=== PATIENT | female | born 1955 | race Caucasian/White ===

== ENCOUNTER → 2017-09-11 16:21 | Outpatient (CLI) | payer OTHER, SELFPAY ==
[2017-09-11 17:52] LABS: Anion Gap 4 (5-15); BUN 24 mg/dL (7-18); BUN/Creat Ratio 49.9 RATIO (10-20); Calcium,Total 9.3 mg/dL (8.5-10.1); Chloride 105 mmol/L (98-107); Creatinine, Serum 0.48 mg/dL (0.55-1.02); EST Glomerular Filtration Rate 139 mL/min (>60); Est Glom Filt Rate - Afr Amer 168 mL/min (>60); Glucose 94 mg/dL (74-106); Potassium 4.2 mmol/L (3.5-5.1); Sodium Level 143 mmol/L (136-145)
== END ==
PROVIDERS: Visit Provider Orthopaedic Surgery
DX: M18.12 Unilateral primary osteoarthritis of first carpometacarpal joint, left hand (principal); M79.642 Pain in left hand; I10 Essential (primary) hypertension
CPT/HCPCS: 36415; 80048

== ENCOUNTER 2017-12-01 11:00 | Outpatient (RCR) | payer OTHER, SELFPAY ==
--- NOTE | 2017-11-09 14:06 | HP.OTEVAL_ITS ---
Patient's Visit Information ALEXANDRA PERALTA is a 61 year old F, referred to Occupational Therapy by Jaydon Zaidi, with a diagnosis of Unilateral primary osteoarthritis of 1st carpometacarpal joint, left hand. Date of Evaluation: 11/09/17 Occupational Therapist: Alana Gonzalez, OTR/Declan, CHT - Subjective Subjective: This 61 year old female was seen for inital OT eval following a left CMC arthroplasty. PT arrives with comfort cool thumb brace. pt states she has used conservative mtg of her left thumb pain for over 2 years. pts sx of eft CMC arthroplasty on September 26 2017. Pt is pleased with her sx results but wants to get back her ROM and strength to return to her PLOF. 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# left 10# Lateral Pinch: right 4# left NT Tripod Pinch: right 4# left NT - DASH-Disabilities of Arm, Shoulder& Hand DASH Sum: 86 - Goals Goal:100% adherence to protocol: Yes Comment: CMC arthroplasty protocol Goal:Daily scar massage when approriate: Yes Goal:ROM equal to unaffected hand: Yes Goal:No pain with affected hand use: Yes Comment: for BADls and IADLs by D/C Goal:Full use of affected hand in daily activities including: Yes Goal:Decrease scar hypersensitivity: Yes - Rehabilitation General Assessment: PT S/P CMC arthroplasty of left thumb with interpositional flexor jackie radialis graft on 09/26/17. PT demo with a decreased in left wrist and thumb ROM and strength. This limits pts ind. with BADls and IADLs. Pt would benefit from skilled OT services 2-3x week for 4 weeks to follow CMC arthroplasty protocol and return pt to [facility] with her ADLs and IADls. Today pt was ed. on scar mtg, AROM of thumb and wrist to initiate her rehabilitaion. Pt demo understanding of instructions given. Rehabilitation Potential: Excellent - Anticipated Interventions Anticipated Interventions: A/AAROM/PROM, Strengthening, Scar Care, Triggerpoint Release, Desensitization, Modalities, Orthoses, Joint Protection/Energy Conservation, Ergonomic Education - Visit Plan Frequency: 2-3x /Week Duration: 4 Weeks TEXT: Thank you for the opportunity to evaluate your patient. For Medicare and Medicare HMO plans, please review the plan of care and approve it. It will need to be FAXED BACK to us at [phone] for Medicare purposes. Please let me know if there are questions or concerns regarding this plan of care. Physician Signature: Date:
--- NOTE | 2017-11-28 12:17 | OTREVAL_ITS ---
Jaydon Zaidi, It has been my pleasure to treat ALEXANDRA PERALTA over the last 6 visits for Unilateral primary osteoarthritis of 1st carpometacarpal joint, left hand. Please see the progress note below for an update on the occupational therapy plan of care! Subjective: pt states she has developed a more natural use of her left thumb with FM tasks. pt states yesterday her hand was 3/10 all day long- did put brace on and it felt better- but has concerns with performing her job tasks for long periods of time- Therapist advised pt to initiate job tasks with CMC brace and wean out of it during her work day. Objective/Function: pt demo good functional ROM of thumb and left wrist-. IP flex 55. MP flex 40. pt demo the ability to peform opposition to base of LF. pt demo with a nodule at CMC region- tender to touch- scar looks fine- some adhesions but does not appear to limit pt ROM. Plan Frequency: 1x/Week Duration: 2 Weeks Plan: pt is perfroming a HEP with t-putty and use of her hand for normal ADLs and IADLS tasks. pt states she is 80% ability at this time. Will let Dr rubial the nodule on left CMC region. Anticipated Interventions Anticipated Interventions: A/AAROM/PROM, Strengthening, Scar Care, Triggerpoint Release, Desensitization, Modalities, Orthoses, Joint Protection/Energy Conservation, Ergonomic Education Please do not hesitate to contact me at [phone] by phone or Fax: if you have questions or concerns regarding this new plan of care! Sincerely, Alana Gonzalez, OTR/L, CHT
--- NOTE | 2018-01-16 10:31 | HP.OT.NRP ---
HP - Discharge Summary - Patient Information ALEXANDRA PERALTA was seen in my office for initial evaluation on 11/09/17. The following Plan of Care was established for this patient: Initial Frequency: 1x/Week Initial Duration: 2 Weeks Plan: pt is perfroming a HEP with t-putty and use of her hand for normal ADLs and IADLS tasks. pt states she is 80% ability at this time. Will let Dr eval the nodule on left CMC region. - Anticipated Interventions Anticipated Interventions: A/AAROM/PROM, Strengthening, Scar Care, Triggerpoint Release, Desensitization, Modalities, Orthoses, Joint Protection/Energy Conservation, Ergonomic Education This patient was last seen in our office 12/01/17. Pertinent comments regarding their Occupational therapy will appear below: pt was seen for 7 OT visits following a CMC arthroplasty. Pt was progressing well and then started to have a painful nodule over CMC region- pt was to return to dr and have it looked at- pt was progressing and demo good ROM but pain- pt did not return to therapy following her apt with . at this time pt d/c due to non attendance. At this point I will be discontinuing this patient from occupational therapy. I would be happy to see this patient again in the future if found appropriate by the physician. Thank you! Alana Gonzalez, OTR/L, CHT
== END 2017-12-01 19:00 | disposition home or self-care (01) ==
LOC: OT 11:00
PROVIDERS: Visit Provider Orthopaedic Surgery
DX: M18.12 Unilateral primary osteoarthritis of first carpometacarpal joint, left hand (principal); M79.642 Pain in left hand; Z47.89 Encounter for other orthopedic aftercare
CPT/HCPCS: 97035; 97110; 97140; 97166; 97530

== ENCOUNTER → 2018-03-14 12:14 | Outpatient (CLI) | payer OTHER, SELFPAY ==
[2018-03-14 18:00] VITALS: BMI 53.7
[2018-03-15 12:44] LABS: Mucous, Urine 0 SEEN /hpf (<or=2+); Red Blood Cells-Urine 0 SEEN /hpf (0-5); Squamous Epithelial Cells - UA 0 SEEN /hpf (5-10)
[2018-03-15 13:00] LABS: Color, Urine Yellow (Yellow); Glucose, Dipstick Normal (Normal); Ketone-Dipstick Negative (Negative); Leukocyte Esterase-Dipstick 500 /ul (Negative); Nitrite-Dipstick Negative (Negative); Occult Blood-Urine Negative /ul (Negative); Protein-Dipstick 15 mg/dl (Negative); Specific Gravity, Urine 1.025 (1.002-1.030); Urine Bilirubin Dipstick Negative (Negative); Urine Clarity Cloudy (Clear); Urine Urobilinogen 1 mg/dl (Normal)
[2018-03-15 13:06] LABS: Amorphous Sediment 2+; Bacteria 1+ /hpf (None Seen); Calcium Oxalate Crystals Ur 1+ /hpf (<or=2+); White Blood Cells 0-5 SEEN /hpf (0-5)
== END ==
PROVIDERS: Family Provider Internal Medicine; PCP Internal Medicine; Referring Provider Internal Medicine; Visit Provider Internal Medicine
DX: R82.90 Unspecified abnormal findings in urine (principal)
CPT/HCPCS: 81001

== ENCOUNTER 2018-03-16 12:45 | Emergency (ER) | payer OTHER, SELFPAY ==
[2018-03-14 18:00] VITALS: BMI 53.7
[2018-03-16 12:46] VITALS: BP 216/94; PULSE 95; RESP 18; TEMP 36.8; O2SAT 97; BMI 53.0
[2018-03-16 12:48] VITALS: PULSE 93; RESP 18; TEMP 36.8
--- NOTE | 2018-03-16 13:10 | CT_ITS ---
STUDY: CT ABDOMEN AND PELVIS WITHOUT CONTRAST REASON FOR EXAM: Female, 62 years old. Abdominal pain. RADIATION DOSAGE (If Supplied By Facility): CTDIvol = ( 34.45 ) mGy, DLP = ( 1833.45 ) mGycm TECHNIQUE: Transaxial images were obtained from the dome of the diaphragm to the symphysis pubis without oral contrast, and without intravenous contrast. Sagittal and coronal images were reconstructed. Individualized dose optimization techniques were used for this CT. COMPARISON: None. FINDINGS: The visualized lung bases are unremarkable. The visualized portions of the heart are within normal limits. There is decreased attenuation of the liver consistent with steatosis. There is hepatomegaly. Normal gallbladder and extrahepatic biliary system. Normal spleen. Normal pancreas. Normal bilateral adrenal glands. Normal right kidney. Normal left kidney. Evaluation of the GI tract is limited by absence of oral contrast. Cannot exclude stomach wall thickening. No dilated loops of bowel or evidence for obstruction. Cannot exclude segmental thickening of the mcmahon of the small or large bowel. Cannot exclude enteritis or colitis. Moderate diffuse fecal retention. Appendix within normal limits. Normal abdominal aorta. Normal inferior vena cava. Normal retroperitoneum. Normal urinary bladder. There is absence of the uterus consistent with a prior hysterectomy. There is a right-sided inguinal hernia containing adipose tissue. There are diffuse degenerative changes of the visualized lumbar spine. CT/Abdomen/Pelvis without Cont IMPRESSION: No definite acute abnormality. Electronically Signed: Jamil Bolanos MD at 15:33 EST , Service support ,
[2018-03-16] MEDS: 0.9% Normal Saline 1,000 ML 1000 ML IV (13:18)
[2018-03-16 13:20] LABS: White Blood Cells 0 SEEN /hpf (0-5)
[2018-03-16 13:22] LABS: Color, Urine Yellow (Yellow); Glucose, Dipstick Normal (Normal); Ketone-Dipstick Negative (Negative); Leukocyte Esterase-Dipstick Negative /ul (Negative); Nitrite-Dipstick Negative (Negative); Occult Blood-Urine 10 /ul (Negative); Protein-Dipstick Negative (Negative); Specific Gravity, Urine 1.015 (1.002-1.030); Urine Bilirubin Dipstick Negative (Negative); Urine Clarity Sl. Cloudy (Clear); Urine Urobilinogen 1 mg/dl (Normal)
[2018-03-16 13:28] LABS: Bacteria 1+ /hpf (None Seen); Mucous, Urine 2+ /hpf (<or=2+); Red Blood Cells-Urine 0-5 SEEN /hpf (0-5); Squamous Epithelial Cells - UA 0-5 SEEN /hpf (5-10)
[2018-03-16 13:28] LABS: Absolute Lymphocyte Count 1.28 X10^3/ul (0.83-4.51); Absolute Neutrophil Count 5.6 X10^3/uL (2.0-7.7); Basophil# 0.01 X10^3/uL; Basophil% 0.1 % (0-1); Eosinophil# 0.06 X10^3/uL; Eosinophils% 0.8 % (0-5); Hematocrit 44.3 % (37-47); Hemoglobin 14.2 g/dl (12.0-15.0); Lymphocyte # 1.28 X10^3/ul (4.0); Lymphocyte % 16.8 % (19-41); Mean Corp Hgb Conc 32.1 g/gl (32-36); Mean Corpuscular Hgb 29.8 pg (27.0-32.0); Mean Corpuscular Volume 92.9 fL (81-99); Mean Platelet Vol. 9.7 fl (6.2-12.0); Monocyte# 0.64 X10^3/uL; Monocyte% 8.4 % (0-10); Neutrophil # 5.61 X10^3/uL (2.7-7.7); Neutrophil % 73.6 % (47-70); POSITIVE COUNT NO; POSITIVE DIFFERENTIAL NO; POSITIVE MORPHOLOGY NO; Platelet Count 274 K/mm3 (150-450); RBC Distribution Width CV 13.4 % (11.6-14.6); Red Blood Count 4.77 M/mm3 (4.2-5.4); White Blood Count 7.6 K/mm3 (4.4-11.0)
[2018-03-16 13:43] LABS: AST(SGOT) 15 U/L (15-37); Alanine Aminotransfer ALT/SGPT 32 U/L (13-56); Albumin, Serum 3.2 g/dL (3.2-5.0); Alkaline Phosphatase 94 U/L (45-117); Anion Gap 10 (5-15); BUN 19 mg/dL (7-18); BUN/Creat Ratio 40.3 RATIO (10-20); Bilirubin, Direct 0.13 mg/dL (0.00-0.30); Calcium,Total 8.6 mg/dL (8.5-10.1); Chloride 106 mmol/L (98-107); Creatinine, Serum 0.47 mg/dL (0.55-1.02); EST Glomerular Filtration Rate 142 mL/min (>60); Est Glom Filt Rate - Afr Amer 172 mL/min (>60); Estimated Creatinine Clearance 98.16 ml/min; Globulin 3.9 g/dL (2.2-4.2); Glucose 98 mg/dL (74-106); Lipase 169 U/L (73-393); Potassium 3.5 mmol/L (3.5-5.1); Protein, Total 7.1 g/dL (6.4-8.2); Sodium Level 144 mmol/L (136-145)
[2018-03-16 14:56] VITALS: BP 168/85; PULSE 77; RESP 16; TEMP 36.6; O2SAT 97
[2018-03-16 15:00] VITALS: BP 168/85; PULSE 73; RESP 16; TEMP 36.7; O2SAT 97
--- NOTE | 2018-03-16 15:48 | ED.VISSUMM ---
- ER Visit Summary Date of Service: 03/16/18 Chief Complaint: Abdominal pain History of Present Illness: The patient is a 62 F with lower abdominal pain that radiates to her left flank. This has been going on for 10 days. She saw her primary doctor who checked a urinalysis. It was not able to be interpreted because of high bilirubin. Patient presents today for continued pain. She has some nausea but no vomiting. No diarrhea or constipation. No history of urinary symptoms. No history of kidney stones. Prior hysterectomy. Physical Examination: Hypertensive but otherwise vitals unremarkable. Afebrile. Nontoxic and in no acute distress. Heart regular rate and rhythm. Lungs clear bilaterally. Abdomen is tender in the left lower quadrant, suprapubic region, and left CVA. No guarding or rebound. Skin appears normal in color without jaundice or pallor. Back is otherwise unremarkable. Patient is able to ambulate without difficulty. Test Results: CBC normal. BUN 19 and creatinine 0.47. Hepatic panel and lipase unremarkable. Urinalysis unremarkable. CT abdomen showed steatosis. Limited due to lack of contrast. Postoperative changes and fecal retention as well as other noncontributory findings. Emergency Department Course and Treatment: Patient was treated with fluids. She declined pain medicine. 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 Her workup was unremarkable. Her repeat blood pressure was 168/85. She declined pain medicine. She appears well. Her exam is reassuring. I believe she is appropriate for outpatient follow-up. She should return right away for any new or worsening symptoms. Continue Motrin at home. Follow-up with primary care. Treatment Plan: As above Disposition: Discharge Impression: 1. Abdominal pain unclear etiology This note was generated with [employer] dictation software. It may contain incorrect words, spelling, and punctuation that were not noted in review of the chart prior to signing ED Disposition - Plan for ED Patient: Chief Complaint: Abd Pain Referrals: Sumit Anton MD [Primary Care Provider] -
--- NOTE | 2018-03-16 15:51 | ED.DCSUM_ITS ---
- ER Visit Summary Date of Service: 03/16/18 Chief Complaint: Abdominal pain History of Present Illness: The patient is a 62 F with lower abdominal pain that radiates to her left flank. This has been going on for 10 days. She saw her primary doctor who checked a urinalysis. It was not able to be interpreted because of high bilirubin. Patient presents today for continued pain. She has some nausea but no vomiting. No diarrhea or constipation. No history of urinary symptoms. No history of kidney stones. Prior hysterectomy. Physical Examination: Hypertensive but otherwise vitals unremarkable. Afebrile. Nontoxic and in no acute distress. Heart regular rate and rhythm. Lungs clear bilaterally. Abdomen is tender in the left lower quadrant, suprapubic region, and left CVA. No guarding or rebound. Skin appears normal in color without jaundice or pallor. Back is otherwise unremarkable. Patient is able to ambulate without difficulty. Test Results: CBC normal. BUN 19 and creatinine 0.47. Hepatic panel and lipase unremarkable. Urinalysis unremarkable. CT abdomen showed steatosis. Limited due to lack of contrast. Postoperative changes and fecal retention as well as other noncontributory findings. Emergency Department Course and Treatment: Patient was treated with fluids. She declined pain medicine. 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 Her workup was unremarkable. Her repeat blood pressure was 168/85. She declined pain medicine. She appears well. Her exam is reassuring. I believe she is appropriate for outpatient follow-up. She should return right away for any new or worsening symptoms. Continue Motrin at home. Follow-up with primary care. Treatment Plan: As above Disposition: Discharge Impression: 1. Abdominal pain unclear etiology This note was generated with [employer] dictation software. It may contain incorrect words, spelling, and punctuation that were not noted in review of the chart prior to signing ED Disposition - Plan for ED Patient: Chief Complaint: Abd Pain Referrals: Sumit Anton MD [Primary Care Provider] -
--- NOTE | 2018-03-16 15:51 | ED.DEP ---
ED Disposition - Plan for ED Patient: Chief Complaint: Abd Pain Instructions: ED Abdominal Pain Unkn Cause Referrals: Sumit Anton MD [Primary Care Provider] -
[2018-03-16 16:17] VITALS: BP 153/76; PULSE 73; RESP 16; O2SAT 99
== END 2018-03-16 16:20 | disposition home or self-care (01) ==
PROVIDERS: Emergency Provider Emergency Medicine; Family Provider Internal Medicine; PCP Internal Medicine
DX: R10.9 Unspecified abdominal pain (principal); Z90.710 Acquired absence of both cervix and uterus; I10 Essential (primary) hypertension; J44.9 Chronic obstructive pulmonary disease, unspecified; K21.9 Gastro-esophageal reflux disease without esophagitis; M54.9 Dorsalgia, unspecified; R11.0 Nausea
CPT/HCPCS: 74176; 80048; 80076; 81001; 83690; 85025; 96360; 99284; J7030; A4216

== ENCOUNTER → 2018-07-17 10:27 | Outpatient (CLI) | payer OTHER, SELFPAY ==
[2018-07-09 13:42] VITALS: BMI 53.0
--- NOTE | 2018-07-17 10:33 | BD_ITS ---
STUDY: DUAL ENERGY X-RAY ABSORPTIOMETRY / DXA REASON FOR EXAM: Female, 62 years old. The patient is postmenopausal. Loss of height. TECHNIQUE: Bone Mineral Density (BMD) measurements of lumbar spine and bilateral hips were obtained. COMPARISON: None. FINDINGS: Lumbar Spine (L1-L4): g/cm2 (1.224) / T-score (0.2) / Z-score (1.6) Findings are suggestive of normal bone density with a low fracture risk. Left Femur Total: g/cm2 (0.754) / T-score (-2.0) / Z-score (-1.0) Left Femoral Neck: g/cm2 (0.669) / T-score (-2.7) / Z-score (-1.3) Right Femur Total: g/cm2 (0.668) / T-score (-2.7) / Z-score (-1.6) Right Femoral Neck: g/cm2 (0.662) / T-score (-2.7) / Z-score (-1.4) BD/Dexa Bone Density Study IMPRESSION: The patient is considered osteoporotic as outlined below according to World Hua Organization (WHO) criteria with a high fracture risk. Reference Information: The T-score is the number of standard deviations above or below the standard which is normal for young adults at their peak bone mineral density. The World Health Organization (WHO) interprets the T-scores as follows: Above -1 Normal bone density Between -1 and -2.5 Osteopenia Equal to / or below -2.5 Osteoporosis As a practical clinical guideline, osteopenia may be graded as follows: Mild -1 through -1.5 Moderate -1.6 through -2.0 Severe -2.1 through -2.4 The Z-score is the number of standard deviations above or below age-matched controls. A Z-score of less than -1.5 would be considered abnormal. References: 1. NIH Osteoporosis and Related Bone Diseases http://www.osteo.org 2. International Society for Clinical Densitometry http://www.iscd.org 3. National Osteoporosis Foundation http://www.nof.org Electronically Signed: Ruslan Cruz, at 15:37 EDT , Service support ,
== END ==
PROVIDERS: Family Provider Internal Medicine; PCP Internal Medicine; Referring Provider Internal Medicine; Visit Provider Internal Medicine
DX: M81.0 Age-related osteoporosis without current pathological fracture (principal)
CPT/HCPCS: 77080

== ENCOUNTER → 2018-07-25 15:49 | Outpatient (CLI) | payer OTHER, SELFPAY ==
[2018-07-25 15:09] VITALS: BMI 53.0
[2018-07-25 18:25] LABS: Anion Gap 4 (5-15); BUN 27 mg/dL (7-18); BUN/Creat Ratio 56.1 RATIO (10-20); Calcium,Total 9.1 mg/dL (8.5-10.1); Chloride 105 mmol/L (98-107); Creatinine, Serum 0.48 mg/dL (0.55-1.02); EST Glomerular Filtration Rate 139 mL/min (>60); Est Glom Filt Rate - Afr Amer 168 mL/min (>60); Glucose 112 mg/dL (74-106); Potassium 3.7 mmol/L (3.5-5.1); Sodium Level 139 mmol/L (136-145)
[2018-07-25 18:30] LABS: Vitamin D,25 Hydroxy 14.7 ng/mL (29.95-100.01)
== END ==
PROVIDERS: Family Provider Internal Medicine; PCP Internal Medicine; Referring Provider Internal Medicine; Visit Provider Internal Medicine
DX: I10 Essential (primary) hypertension (principal); E55.9 Vitamin D deficiency, unspecified
CPT/HCPCS: 36415; 80048; 82306

== ENCOUNTER → 2020-01-30 11:31 | Outpatient (CLI) | payer OTHER, SELFPAY ==
[2020-01-30 11:04] VITALS: BMI 56.9
[2020-01-30 12:53] LABS: Absolute Neutrophil Count 4.5 X10^3/uL (2.0-7.7); Basophil# 0.03 X10^3/uL; Basophil% 0.5 % (0-1); Eosinophil# 0.08 X10^3/uL; Eosinophils% 1.3 % (0-5); Hematocrit 48.5 % (37-47); Hemoglobin 15.1 g/dL (12.0-15.0); Lymphocyte % 19.1 % (19-41); Mean Corp Hgb Conc 31.1 g/dL (32-36); Mean Corpuscular Hgb 29.4 pg (27.0-32.0); Mean Corpuscular Volume 94.5 fL (81-99); Mean Platelet Vol. 10.7 fl (6.2-12.0); Monocyte# 0.48 X10^3/uL; Monocyte% 7.6 % (0-10); NRBC Flagged by Analyzer 0 % (0-5); Neutrophil # 4.49 X10^3/uL (2.7-7.7); Neutrophil % 71.3 % (47-70); Platelet Count 279 K/mm3 (150-450); RBC Distribution Width CV 13.1 % (11.6-14.6); RBC Distribution Width SD 46.1 fl (35.1-43.9); Red Blood Count 5.13 M/mm3 (4.2-5.4); White Blood Count 6.3 K/mm3 (4.4-11.0)
[2020-01-30 13:22] LABS: Vitamin D,25 Hydroxy 26.8 ng/mL
[2020-01-30 13:34] LABS: ALB/GLOB Ratio 0.8 RATIO (0.9-2.4); AST(SGOT) 18 U/L (15-37); Alanine Aminotransfer ALT/SGPT 44 U/L (13-56); Albumin, Serum 3.5 g/dL (3.2-5.0); Alkaline Phosphatase 78 U/L (45-117); Anion Gap 6 (5-15); BUN 23 mg/dL (7-18); BUN/Creat Ratio 41.6 RATIO (10-20); Calcium,Total 8.9 mg/dL (8.5-10.1); Chloride 105 mmol/L (98-107); Cholesterol 167 mg/dL (200); Creatinine, Serum 0.55 mg/dL (0.55-1.02); EST Glomerular Filtration Rate 118 mL/min (>60); Est Glom Filt Rate - Afr Amer 142 mL/min (>60); Globulin 4.3 g/dL (2.2-4.2); Glucose 89 mg/dL (74-106); High Density Lipoprotein 48 mg/dL; Potassium 3.8 mmol/L (3.5-5.1); Protein, Total 7.8 g/dL (6.4-8.2); Sodium Level 141 mmol/L (136-145); Thyroid Stim Hormone (TSH) 2.03 uIU/mL (0.358-3.74); Triglycerides 111 mg/dL; Very Low Density Lipoprotein 22 mg/dL (5-40)
== END ==
PROVIDERS: PCP Internal Medicine; Referring Provider Nurse Practitioner Family; Visit Provider Nurse Practitioner Family
DX: Z00.00 Encounter for general adult medical examination without abnormal findings (principal); I10 Essential (primary) hypertension; K21.9 Gastro-esophageal reflux disease without esophagitis; J45.909 Unspecified asthma, uncomplicated; M81.0 Age-related osteoporosis without current pathological fracture; E55.9 Vitamin D deficiency, unspecified
CPT/HCPCS: 36415; 80053; 80061; 82306; 84443; 85025

== ENCOUNTER → 2020-02-04 13:53 | Outpatient (CLI) | payer OTHER, SELFPAY ==
[2020-01-30 11:04] VITALS: BMI 56.9
--- NOTE | 2020-02-04 13:55 | BI_ITS ---
MAMMOGRAPHY - BILATERAL SCREENING REASON FOR EXAM: Female, 64 years old. Routine annual screening examination. PERTINENT HISTORY: Non-contributory. TECHNIQUE: Digital bilateral breast derrell (3D mammographic acquisition) in the CC and MLO projections. 2-D mediolateral oblique (MLO) and craniocaudad (CC) views of both breasts were obtained. CAD: Full Field Digital Mammography with Computer Added Detection was performed. COMPARISON: Comparison is made with prior study dated 01/18/2017 and 01/18/2016. FINDINGS: Breast Composition: The breasts are almost entirely fatty. There are no dominant masses or suspicious calcifications. Stable benign-appearing bilateral axillary lymph nodes. No other significant abnormalities are identified. There has been no significant change since the prior study. BI/SCREEN MAMM (CAD) W/DERRELL BILAT IMPRESSION: Stable bilateral screening mammogram. Yearly follow-up mammogram recommended. (A) ASSESSMENT CATEGORY: BIRADS Category 2: Benign. A letter regarding these results will be sent to the patient by the facility within 30 days. Approximately 10% of breast cancers are not detected by mammography. A normal mammogram should not delay biopsy of a clinically suspicious abnormality. [id number] Electronically Signed: Ruslan Cruz, at 15:06 EST , Service support ,
== END ==
PROVIDERS: PCP Internal Medicine; Referring Provider Nurse Practitioner Family; Visit Provider Nurse Practitioner Family
DX: Z12.31 Encounter for screening mammogram for malignant neoplasm of breast (principal)
CPT/HCPCS: 77063; 77067

== ENCOUNTER → 2021-02-18 09:05 | Outpatient (CLI) | payer MEDICARE, OTHER, SELFPAY ==
[2021-02-18 12:31] LABS: Absolute Lymphocyte Count 1.57 X10^3/uL (0.83-4.51); Absolute Neutrophil Count 3.5 X10^3/uL (2.0-7.7); Basophil# 0.03 X10^3/uL; Basophil% 0.5 % (0-1); Eosinophil# 0.07 X10^3/uL; Eosinophils% 1.3 % (0-5); Hematocrit 45.7 % (37-47); Hemoglobin 14.2 g/dL (12.0-15.0); Lymphocyte # 1.57 X10^3/ul (0.83-4.51); Lymphocyte % 28.3 % (19-41); Mean Corp Hgb Conc 31.1 g/dL (32-36); Mean Corpuscular Volume 93.5 fL (81-99); Mean Platelet Vol. 11.1 fl (6.2-12.0); Monocyte# 0.39 X10^3/uL; NRBC Flagged by Analyzer 0 % (0-5); Neutrophil # 3.47 X10^3/uL (2.7-7.7); Neutrophil % 62.5 % (47-70); Platelet Count 284 K/mm3 (150-450); RBC Distribution Width CV 13.4 % (11.6-14.6); RBC Distribution Width SD 45.8 fl (35.1-43.9); Red Blood Count 4.89 M/mm3 (4.2-5.4); White Blood Count 5.6 K/mm3 (4.4-11.0)
[2021-02-18 12:37] LABS: ALB/GLOB Ratio 0.7 RATIO (0.9-2.4); AST(SGOT) 20 U/L (15-37); Alanine Aminotransfer ALT/SGPT 41 U/L (13-56); Albumin, Serum 3.3 g/dL (3.2-5.0); Alkaline Phosphatase 71 U/L (45-117); Anion Gap 4 (5-15); BUN 28 mg/dL (7-18); BUN/Creat Ratio 55.7 RATIO (10-20); Chloride 104 mmol/L (98-107); Cholesterol 163 mg/dL (200); EST Glomerular Filtration Rate 131 mL/min (>60); Est Glom Filt Rate - Afr Amer 158 mL/min (>60); Globulin 4.5 g/dL (2.2-4.2); Glucose 102 mg/dL (74-106); High Density Lipoprotein 48 mg/dL; Protein, Total 7.8 g/dL (6.4-8.2); Sodium Level 140 mmol/L (136-145); Thyroid Stim Hormone (TSH) 3.08 uIU/mL (0.358-3.74); Triglycerides 99 mg/dL; Very Low Density Lipoprotein 20 mg/dL (5-40)
== END ==
PROVIDERS: PCP Internal Medicine; Referring Provider Nurse Practitioner Family; Visit Provider Nurse Practitioner Family
DX: Z00.00 Encounter for general adult medical examination without abnormal findings (principal); E55.9 Vitamin D deficiency, unspecified; I10 Essential (primary) hypertension; K21.9 Gastro-esophageal reflux disease without esophagitis; M81.0 Age-related osteoporosis without current pathological fracture
CPT/HCPCS: 36415; 80053; 80061; 82306; 84443; 85025

== ENCOUNTER → 2021-03-18 12:25 | Outpatient (CLI) | payer MEDICARE, OTHER, SELFPAY ==
--- NOTE | 2021-03-18 12:30 | BI_ITS ---
MAMMOGRAPHY - BILATERAL SCREENING 3-D TOMOSYNTHESIS REASON FOR EXAM: Female, 65 years old. screening PERTINENT HISTORY: No significant family history. TECHNIQUE: 2-D mammograms and 3-D Tomosynthesis of the breast (s) were performed. CAD was performed. COMPARISON: 02/04/2020 FINDINGS: The breast composition is composed of scattered fibroglandular density. Scattered benign calcifications are seen. No dense spiculated masses or suspicious microcalcifications are identified. No architectural distortion is identified. There is no skin thickening or retraction. There has been no significant change since the prior study. BI/SCRN MAMM (CAD)W/DERRELL BILAT IMPRESSION: No mammographic signs of malignancy. Routine yearly mammograms recommended. ASSESSMENT CATEGORY: BIRADS Category 1: Negative. A letter regarding these results will be sent to the patient by the facility within 30 days. FOLLOW UP RECOMMENDATION: Yearly follow up mammogram recommended. (A) Approximately 10% of breast cancers are not detected by mammography. A normal mammogram should not delay biopsy of a clinically suspicious abnormality. Electronically Signed: Jorge López MD at 13:45 EST Tel , Service support ,
--- NOTE | 2021-03-18 12:31 | BD_ITS ---
STUDY: DUAL ENERGY X-RAY ABSORPTIOMETRY / DXA REASON FOR EXAM: Female, 65 years old. Patient is postmenopausal. TECHNIQUE: Bone Mineral Density (BMD) measurements of lumbar spine and bilateral hips were obtained. COMPARISON: Comparison is made with prior study dated 07/17/2018. FINDINGS: Lumbar Spine (L1-L4): g/cm2 (1.209) / T-score (1.6) / Z-score (3.4) Findings are suggestive of normal bone density with a low fracture risk. Left Femur Total: g/cm2 (0.796) / T-score (-1.2) / Z-score (0.0) Left Femoral Neck: g/cm2 (0.587) / T-score (-2.4) / Z-score (-0.8) Right Femur Total: g/cm2 (0.733) / T-score (-1.7) / Z-score (-0.5) Right Femoral Neck: g/cm2 (0.646) / T-score (-1.8) / Z-score (-0.3) The T-Scores on the most recent prior examination were: Lumbar Spine (L1-L4): There has been improvement of bone density since the previous examination. Left Femur Total: which represents an improvement of 14.4%. Right Femur Total: which represents an improvement of 19.8%. BD/Dexa Bone Density Study IMPRESSION: The patient is considered osteopenic as outlined below according to World Hua Organization (WHO) criteria with a high fracture risk. There has been improvement of bone density since the previous examination. Reference Information: The T-score is the number of standard deviations above or below the standard which is normal for young adults at their peak bone mineral density. The World Health Organization (WHO) interprets the T-scores as follows: Above -1 Normal bone density Between -1 and -2.5 Osteopenia Equal to / or below -2.5 Osteoporosis As a practical clinical guideline, osteopenia may be graded as follows: Mild -1 through -1.5 Moderate -1.6 through -2.0 Severe -2.1 through -2.4 The Z-score is the number of standard deviations above or below age-matched controls. A Z-score of less than -1.5 would be considered abnormal. References: 1. NIH Osteoporosis and Related Bone Diseases www osteo.org 2. International Society for Clinical Densitometry www iscd.org 3. National Osteoporosis Foundation www nof.org Electronically Signed: Ruslan Cruz MD at 9:17 EST , Service support ,
== END ==
PROVIDERS: PCP Internal Medicine; Visit Provider Nurse Practitioner Family
DX: Z12.31 Encounter for screening mammogram for malignant neoplasm of breast (principal); Z00.00 Encounter for general adult medical examination without abnormal findings; M81.0 Age-related osteoporosis without current pathological fracture; I10 Essential (primary) hypertension; K21.9 Gastro-esophageal reflux disease without esophagitis
CPT/HCPCS: 77063; 77067; 77080

== ENCOUNTER → 2022-05-20 | Outpatient (CLI) | payer MEDICARE, OTHER, SELFPAY ==
[2022-05-20 12:22] LABS: Erythrocyte Sedimentation Rate 15 mm/hr (0-30)
[2022-05-20 12:23] LABS: Absolute Lymphocyte Count 1.45 X10^3/uL (0.83-4.51); Absolute Neutrophil Count 3.1 X10^3/uL (2.0-7.7); Basophil# 0.04 X10^3/uL; Basophil% 0.8 % (0-1); Eosinophil# 0.07 X10^3/uL; Eosinophils% 1.4 % (0-5); Hematocrit 47.4 % (37-47); Hemoglobin 14.8 g/dL (12.0-15.0); Lymphocyte # 1.45 X10^3/ul (0.83-4.51); Lymphocyte % 28.5 % (19-41); Mean Corp Hgb Conc 31.2 g/dL (32-36); Mean Corpuscular Hgb 29.8 pg (27.0-32.0); Mean Corpuscular Volume 95.4 fL (81-99); Mean Platelet Vol. 11.6 fl (6.2-12.0); Monocyte# 0.42 X10^3/uL; Monocyte% 8.3 % (0-10); NRBC Flagged by Analyzer 0 % (0-5); Neutrophil # 3.09 X10^3/uL (2.7-7.7); Neutrophil % 60.6 % (47-70); Platelet Count 259 K/mm3 (150-450); RBC Distribution Width CV 13.1 % (11.6-14.6); RBC Distribution Width SD 46.3 fl (35.1-43.9); Red Blood Count 4.97 M/mm3 (4.2-5.4); White Blood Count 5.1 K/mm3 (4.4-11.0)
[2022-05-20 12:36] LABS: Vitamin B12 308 pg/mL (211-911); Vitamin D,25 Hydroxy 55.8 ng/mL
[2022-05-20 13:09] LABS: ALB/GLOB Ratio 0.9 RATIO (0.9-2.4); AST(SGOT) 25 U/L (15-37); Alanine Aminotransfer ALT/SGPT 40 U/L (13-56); Albumin, Serum 3.6 g/dL (3.2-5.0); Alkaline Phosphatase 60 U/L (45-117); Anion Gap 6 (5-15); BUN 25 mg/dL (7-18); BUN/Creat Ratio 44.2 RATIO (10-20); CRP < 2.90 mg/L (0.0-3.0); Calcium,Total 9.3 mg/dL (8.5-10.1); Chloride 101 mmol/L (98-107); Cholesterol 173 mg/dL (200); Creatinine, Serum 0.57 mg/dL (0.55-1.02); EST Glomerular Filtration Rate 114 mL/min (>60); Est Glom Filt Rate - Afr Amer 137 mL/min (>60); Globulin 4.1 g/dL (2.2-4.2); Glucose 95 mg/dL (74-106); High Density Lipoprotein 53 mg/dL; Potassium 3.8 mmol/L (3.5-5.1); Protein, Total 7.7 g/dL (6.4-8.2); Sodium Level 138 mmol/L (136-145); Thyroid Stim Hormone (TSH) 4.45 uIU/mL (0.358-3.74); Triglycerides 97 mg/dL; Very Low Density Lipoprotein 19 mg/dL (5-40)
[2022-05-20 13:17] LABS: Hemoglobin A1c 5.4 % (3.8-5.6)
[2022-05-23 18:47] LABS: ANTINUCLEAR ANTIBODIES DIRECT Negative (Negative)
== END | disposition home or self-care (01) ==
LOC: BIMLAB 08:50
PROVIDERS: PCP Internal Medicine; Referring Provider Nurse Practitioner Family; Visit Provider Nurse Practitioner Family
DX: M25.50 Pain in unspecified joint (principal); Z88.9 Allergy status to unspecified drugs, medicaments and biological substances; I10 Essential (primary) hypertension; R73.09 Other abnormal glucose; M81.0 Age-related osteoporosis without current pathological fracture; M19.90 Unspecified osteoarthritis, unspecified site
CPT/HCPCS: 36415; 80053; 80061; 82306; 82607; 83036; 84443; 85025; 85652; 86038; 86140; 86225; 86235; 86431

== ENCOUNTER → 2022-05-26 | Outpatient (CLI) | payer MEDICARE, OTHER, SELFPAY ==
--- NOTE | 2022-05-26 14:36 | BI_ITS ---
MAMMOGRAPHY - BILATERAL SCREENING REASON FOR EXAM: Female, 66 years old. Routine annual screening examination. PERTINENT HISTORY: Non-contributory. TECHNIQUE: Digital bilateral breast derrell (3D mammographic acquisition) in the CC and MLO projections. 2-D mediolateral oblique (MLO) and craniocaudad (CC) views of both breasts were obtained. CAD: Full Field Digital Mammography with Computer Added Detection was performed. COMPARISON: Comparison is made with prior study dated March 18, 2021 and February 04, 2020. FINDINGS: Breast Composition: The breasts are almost entirely fatty. There are no dominant masses or suspicious calcifications. Stable small benign-appearing bilateral axillary lymph nodes. No other significant abnormalities are identified. There has been no significant change since the prior study. BI/SCRN MAMM (CAD)W/DERRELL BILAT IMPRESSION: Stable bilateral screening mammogram. Yearly follow-up mammogram recommended. (A) ASSESSMENT CATEGORY: BIRADS Category 2: Benign. A letter regarding these results will be sent to the patient by the facility within 30 days. Approximately 10% of breast cancers are not detected by mammography. A normal mammogram should not delay biopsy of a clinically suspicious abnormality. [id number] Electronically Signed: Ruslan Cruz MD at 7:54 EST ,
== END | disposition home or self-care (01) ==
LOC: OPBI 14:35
PROVIDERS: PCP Internal Medicine; Visit Provider Nurse Practitioner Family
DX: Z12.31 Encounter for screening mammogram for malignant neoplasm of breast (principal)
CPT/HCPCS: 77063; 77067

== ENCOUNTER → 2022-07-12 | Outpatient (CLI) | payer MEDICARE, OTHER, SELFPAY ==
[2022-07-12 13:32] LABS: Vitamin B12 734 pg/mL (211-911)
[2022-07-12 13:43] LABS: Thyroid Stim Hormone (TSH) 1.43 uIU/mL (0.358-3.74)
== END | disposition home or self-care (01) ==
LOC: BIMLAB 10:01
PROVIDERS: PCP Internal Medicine; Visit Provider Nurse Practitioner Family
DX: E03.9 Hypothyroidism, unspecified (principal); E53.8 Deficiency of other specified B group vitamins
CPT/HCPCS: 36415; 82607; 84443

== ENCOUNTER 2022-07-28 08:06 | Day surgery (SDC) | payer MEDICARE, OTHER, SELFPAY ==
--- NOTE | 2022-07-28 | COLBX_PTH ---
PATIENT: ALEXANDRA PERALTA LOC: EN U#:[id number] AGE/SX: 66/F ROOM: RE07/28/[address]: Dr. Jaydon Teresa MD : 1955 BED: DIS: 07/28/2022 SPEC #: [id number] RECD: 07/28/22 14:04 STATUS: CYNTHIA THU #: [id number] CHARLES: 07/28/22 00:[address]: Jaydon Teresa DEPT: SURGICAL PATHOLOGY RECD BY: Tahir Hou ENTERED: 07/28/22 14:05 SP TYPE: COLON BX ZAINAB DR: Dr. Sumit Anton MD Tissues: A - Transverse colon B - Sigmoid colon biopsy C - Sigmoid colon biopsy D - Sigmoid colon biopsy E - Sigmoid colon biopsy F - Rectum, NOS Procedures: Surgery Specimen Level IV HEADER OPERATION: Colonoscopy ? open access (MAC), biopsy PRE-OP DIAGNOSIS: Screening TISSUE SUBMITTED: A - Transverse polyp biopsy, B - Sigmoid polyp biopsy, C - Sigmoid polyp biopsy #2, D - Distal sigmoid polyps biopsy, E - Distal sigmoid polyps biopsy #2, F - Rectal polyps biopsy MICROSCOPIC DIAGNOSIS A. Transverse colon polyp, biopsy: Inflammatory polyp. B. Sigmoid colon polyp, biopsy: Inflammatory polyp. C. Sigmoid colon polyp, biopsy: Tubular adenoma. D. Distal sigmoid colon polyps, biopsy: Fragments of hyperplastic polyp. E. Distal sigmoid colon polyps #2, biopsy: Fragments of hyperplastic polyp. F. Rectal polyps, biopsy: Fragments of hyperplastic polyps. AM:annika 07/29/2022 MICROSCOPIC DESCRIPTION Slides are reviewed. GROSS DESCRIPTION A - Received in fixative is one container labeled with the patient's name and designated transverse polyp biopsy. The specimen consists of one irregular fragment of light zuniga soft tissue that measures 0.4 x 0.3 x 0.1 cm. The specimen is totally submitted in one cassette. B - Received in fixative is one container labeled with the patient's name and designated sigmoid polyp biopsy. The specimen consists of one irregular fragment of light zuniga soft tissue that measures 0.4 x 0.4 x 0.1 cm. The specimen is totally submitted in one cassette. C - Received in fixative is one container labeled with the patient's name and designated sigmoid polyp #2. The specimen consists of one irregular fragment of light zuniga soft tissue that measures 0.3 x 0.3 x 0.1 cm. The specimen is totally submitted in one cassette. D - Received in fixative is one container labeled with the patient's name and designated distal sigmoid polyps. The specimen consists of multiple irregular fragments of light zuniga soft tissue that in aggregate measure 1.5 x 0.5 x 0.1 cm. The specimen is totally submitted in one cassette. E - Received in fixative is one container labeled with the patient's name and designated distal sigmoid polyps #2. The specimen consists of multiple irregular fragments of light zuniga soft tissue that in aggregate measure 1.5 x 0.3 x 0.1 cm. The specimen is totally submitted in one cassette. F - Received in fixative is one container labeled with the patient's name and designated rectal polyps biopsy. The specimen consists of multiple irregular fragments of light zuniga soft tissue that in aggregate measure 2.0 x 0.5 x 0.1 cm. The specimen is totally submitted in one cassette. / SJ:rg 07/28/2022 TC:5 CPT: 26915 x6
[2022-07-28] MEDS: Lactated Ringers 1,000 ML 15 ML IV ×2 (08:41→10:20)
[2022-07-28 08:42] VITALS: BP 119/61; PULSE 77; RESP 18; TEMP 36.9; O2SAT 97; BMI 54.5
--- NOTE | 2022-07-28 08:59 | HP.PCM_ITS ---
[facility] General Date of Service: 07/28/22 Chief Complaint: Colon Cancer screening [facility] Narrative ALEXANDRA PERALTA, is a 66 F who presents screening colonoscopy. She confirms her preappointment questionnaire that she has undergone a prior unremarkable colonoscopy 10 years ago through the [facility]. Since that exam she has experienced some slight pressure or spasm in her left lower quadrant that comes and goes. She confirms a family history of colon cancer diagnosed in her maternal uncle. She is unclear of the details of this diagnosis, but estimates that he was diagnosed in his 50s. Her only prior abdominal surgical history was a total abdominal hysterectomy performed remotely. She denies any use of blood thinners. Lastly she confirms that her prep was completed successfully and that her output is now clear. [facility] Medical History (Updated 07/28/22 @ 09:[address] Jaydon Teresa MD) Ambulates with cane Arthritis Asthma B12 deficiency Bulging discs Chronic cough Double kidney Encounter for preventative adult health care examination Gastric reflux GERD (gastroesophageal reflux disease) History of hiatal hernia History of rheumatic fever Hypertension Hypothyroidism Leg cramps Lymphedema Multiple allergies Multiple joint pain Non-smoker Post-menopausal Screening for colon cancer Sinus headache Thyroid disease Vitamin D deficiency Wears glasses Home Medications bacitracin 500 unit/gram topical ointment 1 applic topical Q12H 03/14/18 [History Last Taken Unknown] guaifenesin 600 mg tablet, extended release 12 hr (Mucinex) 600 mg PO DAILY 03/14/18 [History Last Taken Unknown] ketotifen fumarate 0.025 % (0.035 %) eye drops (Alaway) 1 drp ophthalmic (eye) DAILY 03/14/18 [History Last Taken Unknown] levalbuterol HCl 0.63 mg/3 mL solution for nebulization (Xopenex) 0.63 mg inhalation .prn 03/14/18 [History Last Taken Unknown] cholecalciferol (vitamin D3) 50 mcg (2,000 unit) capsule 50 mcg PO DAILY 01/30/20 [History Last Taken Unknown] denosumab 60 mg/mL subcutaneous syringe (Prolia) See Rx Instructions .Route .COMPLEX #1 mL 12/22/20 [Rx Last Taken Unknown] disability placard #1 ea 08/12/21 [Rx Last Taken Unknown] albuterol sulfate 90 mcg/actuation aerosol inhaler (ProAir HFA) 1 puff inhalation Q6H PRN Asthma #8.5 grams 05/18/22 [Rx Last Taken Unknown] budesonide 180 mcg/actuation breath activated powder inhaler (Pulmicort Flexhaler) 1 inh inhalation DAILY #1 ea 05/18/22 [Rx Last Taken 07/28/22] lisinopril 20 mg-hydrochlorothiazide 12.5 mg tablet 1 tab PO DAILY #90 tabs 05/18/22 [Rx Last Taken Unknown] omeprazole 20 mg capsule,delayed release 20 mg PO BID PRN gerd #180 caps 05/18/22 [Rx Last Taken Unknown] fluticasone propionate 50 mcg/actuation nasal spray,suspension 1 spray intranasal DAILY #16 grams 05/19/22 [Rx Last Taken Unknown] mecobalamin (vitamin B12) 500 mcg chewable tablet 500 mcg PO .QD 06/07/22 [History Last Taken Unknown] acetaminophen 650 mg tablet,extended release (Tylenol Arthritis Pain) 650 mg PO Q8H PRN Pain 06/29/22 [History Last Taken Unknown] meloxicam 15 mg tablet 15 mg PO DAILY PRN pain, moderate #90 tabs 06/29/22 [Rx Last Taken Unknown] calcium 500 mg tablet 500 mg PO BID 07/25/22 [History Last Taken Unknown] levothyroxine 50 mcg tablet 75 mcg PO DAILY 07/25/22 [History Last Taken 07/28/22] peg 400-propylene glycol 0.4 %-0.3 % eye drops (Systane (propylene glycol)) 1 drp EACH EYE DAILY PRN Dry Eyes 07/25/22 [History Last Taken Unknown] Allergy/AdvReac Type Severity Reaction Status Date / Time orange Allergy Severe Throat Verified 07/28/22 08:38 swelling shrimp Allergy Severe Throat Verified 07/28/22 08:38 swelling Family History Mother Arthritis Heart disease High cholesterol Osteoporosis CVA (cerebral vascular accident) Father Arthritis Prostate cancer Sister Arthritis High cholesterol Brother Prostate cancer Skin cancer Grandfather CVA (cerebral vascular accident) Uncle Colon cancer Surgical History History of bilateral cataract extraction History of carpal tunnel surgery of right wrist History of colonoscopy History of hysteroscopy History of orthopedic surgery History of orthopedic surgery History of orthopedic surgery History of prosthetic unicompartmental arthroplasty of left knee History of right knee joint replacement History of tonsillectomy and adenoidectomy History of total hysterectomy with bilateral salpingo-oophorectomy (BSO) History of tympanostomy Social History Smoking Status: Never smoker alcohol intake: never substance use type: does not use what type of physical activity do you participate in: none Past Medical/Surgical History Planned Operation Planned Operative Procedure/s: COLONSCOPY-OA Previous Hospitalizations/Surgeries HX Hospitalizations: No Any Problems With Anesthesia: No You/Your Family Experience Fever (Hyperthermia) With Anes: No Cholinesterase deficiency: No Cardiovascular Hx of Irregular Heartbeat and/or Afib: No Hx Heart Attack: No Hx Congestive Heart Failure: No Hx Hypertension: No Hx Pacemaker: No Respiratory Hx Chronic Obstructive Pulmonary Disease (COPD): No Hx Asthma: Yes Hx Emphysema: No Hx Sleep Apnea: No Hx Respiratory Tract Infection/Cold (presently): No Do You Snore Loudly (louder than talking or can be heard): Yes Do You Often Feel Tired/ Fatigued/ Sleepy Dring Daytime?: No Has Anyone Observed You Stop Breathing During Sleep?: No Result (for STOP score): Negative Smoking Status: Never smoker Gastrointestinal Hx Gastroesophageal Reflux: Yes Controlled With Meds: Yes Hx Ulcer: No Neurological Hx Seizures: No Hx Multiple Sclerosis: No Hx Parkinson's Disease: No Hx Head/Neck Injury: No Hx Headaches: Yes Hx Back Injury/Pain: Yes Does patient have nerve stimulator: No Blood Disorder Hx High Cholesterol: Yes Psycho/Social Hx Anxiety: No Hx Depression: No Miscellaneous Recent Exposure to Contagious Disease: No Allergies orange Allergy (Severe, Verified 07/28/22 08:38) Throat swelling shrimp Allergy (Severe, Verified 07/28/22 08:38) Throat swelling Discharge Is Pt Admitted From a Care Home, or a Nursing Home: No After D/C, Where Do you Plan to Go: Return Home Vital Signs Vital Signs Vital Signs: 07/28/22 08:42 07/28/22 08:42 Temperature 98.4 F Temperature Source Temporal Pulse Rate 77 Respiratory Rate 18 Respiratory Pattern Normal Blood Pressure 119/61 Blood Pressure Mean 80 Blood Pressure Source Monitor Blood Pressure Position Semi-Fowlers Blood Pressure Location Right Arm Pulse Ox 97 Oxygen Delivery Method Room Air Weight Weight: 298 lb 3.2 oz Body Mass Index (BMI) 54.5 Physical Exam Const alert, oriented x3 and no apparent distress General Appearance: cooperative GI GI Narrative: Obese, nondistended, soft, mildly tender to palpation left lower quadrant Assessment & Plan Assessment/Plan (1) Encounter for preventative adult health care examination: (2) Screening for colon cancer: PLAN: Plan This is a 66-year-old female with a secondary relative family history for colon cancer, but negative screening 10 years ago. Her only interval health update is some episodic spasms of the left lower quadrant. She confirms some very mild tenderness on exam today. She also confirms that her prep for the today's proce dure was completed successfully. Therefore we will proceed to the endoscopy suite for update of her screening colonoscopy as previously arranged. Surgery Risks - Colonoscopy Risks Include but are not Limited To: Risks include but are not limited to: Bleeding, perforation requiring further surgery, inability to complete colonoscopy requiring barium enema.
[2022-07-28 10:25] VITALS: BP 121/65; PULSE 63; RESP 16; TEMP 36.2; O2SAT 98
--- NOTE | 2022-07-28 10:29 | OP.CCLET_ITS ---
07/28/2022 Sumit Anton MD [address] [place] [address] [place] [address] Re : Colonoscopy procedure for Norma Cruz Dear Dr. Anton This procedure was performed on July. My impressions and recommendations are as follows: Impressions : - One 3 mm polyp in the proximal transverse colon. Biopsied. - Many 3 to 5 mm polyps in the sigmoid colon. Biopsied. - Diverticulosis in the sigmoid colon. No specimens collected. - A few 2 to 4 mm polyps in the rectum. Biopsied. - The distal rectum and anal verge are normal on retroflexion view. - Medium-sized lipoma in the ascending colon. No specimens collected. Recommendations : - Discharge patient to home (via wheelchair). - High fiber diet today. - Continue present medications. - Await pathology results. - Repeat colonoscopy date to be determined after pending pathology results are reviewed for surveillance of multiple polyps. - Telephone my office for pathology results in 1 week. My findings are described in the full procedure note, which is enclosed. If I can be of further assistance, please feel free to contact me at Doctor phone number(s): , Work: . Sincerely, Jaydon Teresa MD 07/28/2022 10:28:56 AM This report has been signed electronically.
--- NOTE | 2022-07-28 10:29 | OP.COLON_ITS ---
Patient Name: Norma Cruz Procedure Date: 07/28/2022 8:49 AM Date of : 1955 Age: 66 Procedure: Colonoscopy Indications: Screening for colorectal malignant neoplasm Providers: Jaydon Teresa MD Medicines: See the Anesthesia note for documentation of the administered medications Patient Profile: Last Colonoscopy: 10 years ago. Complications: No immediate complications. Estimated blood loss: Minimal. Procedure: Pre-Anesthesia Assessment: - The heart rate, respiratory rate, oxygen saturations, blood pressure, adequacy of pulmonary ventilation, and response to care were monitored throughout the procedure. After I obtained informed consent, the scope was passed under direct vision. Throughout the procedure, the patient's blood pressure, pulse, and oxygen saturations were monitored continuously. The colonoscope was introduced through the anus and advanced to the cecum, identified by its appearance. The colonoscopy was somewhat difficult due to numerous polyps The quality of the bowel preparation was good. Scope In: 9:12:02 AM Scope Withdrawal Time 0 hours 55 minutes 33 seconds Scope Out: 10:16:20 AM Total Procedure Duration Time 1 hour 4 minutes 18 seconds Findings: A 3 mm polyp was found in the proximal transverse colon. The polyp was semi-sessile. Biopsies were taken with a cold forceps for histology. Estimated blood loss was minimal. Many semi-sessile polyps were found in the sigmoid colon. The polyps were 3 to 5 mm in size. Biopsies were taken with a cold forceps for histology. Estimated blood loss was minimal. Multiple small-mouthed diverticula were found in the sigmoid colon. No biopsies or other specimens were collected for this exam. A few semi-sessile polyps were found in the rectum. The polyps were 2 to 4 mm in size. Biopsies were taken with a cold forceps for histology. Estimated blood loss was minimal. The retroflexed view of the distal rectum and anal verge was normal and showed no anal or rectal abnormalities. No biopsies or other specimens were collected for this exam. There was a medium-sized lipoma, 15 mm in diameter, in the ascending colon. No biopsies or other specimens were collected for this exam. Impression: - One 3 mm polyp in the proximal transverse colon. Biopsied. - Many 3 to 5 mm polyps in the sigmoid colon. Biopsied. - Diverticulosis in the sigmoid colon. No specimens collected. - A few 2 to 4 mm polyps in the rectum. Biopsied. - The distal rectum and anal verge are normal on retroflexion view. - Medium-sized lipoma in the ascending colon. No specimens collected. Recommendation: - Discharge patient to home (via wheelchair). - High fiber diet today. - Continue present medications. - Await pathology results. - Repeat colonoscopy date to be determined after pending pathology results are reviewed for surveillance of multiple polyps. - Telephone my office for pathology results in 1 week. Procedure Code(s): --- Professional --- 31305, Colonoscopy, flexible; with biopsy, single or multiple Diagnosis Code(s): --- Professional --- Z12.11, Encounter for screening for malignant neoplasm of colon D12.3, Benign neoplasm of transverse colon (hepatic flexure or splenic flexure) D12.5, Benign neoplasm of sigmoid colon K62.1, Rectal polyp D17.5, Benign lipomatous neoplasm of intra-abdominal organs K57.30, Diverticulosis of large intestine without perforation or abscess without bleeding CPT copyright 2017 [employer]. All rights reserved. The codes documented in this report are preliminary and upon clinical sciences professor review may be revised to meet current compliance requirements. Jaydon Teresa MD 07/28/2022 10:28:56 AM This report has been signed electronically. Number of Addenda: 0 Note Initiated On: 07/28/2022 8:49 AM
[2022-07-28 10:30] VITALS: BP 121/65; BP 122/67; PULSE 62; RESP 16; O2SAT 100
[2022-07-28 10:35] VITALS: BP 121/65; BP 125/65; PULSE 72; RESP 16; O2SAT 100
[2022-07-28 10:40] VITALS: BP 121/65; BP 134/68; PULSE 59; RESP 16; TEMP 36.2; O2SAT 100
[2022-07-28 11:35] VITALS: BP 121/65
== END 2022-07-28 11:41 | disposition home or self-care (01) ==
LOC: EN 08:07 → AC 08:09
PROVIDERS: PCP Internal Medicine; Referring Provider Surgery; Visit Provider Surgery
PROC: 0DJD8ZZ Inspection of Lower Intestinal Tract, Via Natural or Artificial Opening Endoscopic (ICD-10-PCS; CPT 45378; principal; 2022-07-28 09:10)
DX: Z12.11 Encounter for screening for malignant neoplasm of colon (principal); K57.30 Diverticulosis of large intestine without perforation or abscess without bleeding; Z80.0 Family history of malignant neoplasm of digestive organs; I10 Essential (primary) hypertension; K62.1 Rectal polyp; D12.3 Benign neoplasm of transverse colon; D12.5 Benign neoplasm of sigmoid colon; D17.5 Benign lipomatous neoplasm of intra-abdominal organs
CPT/HCPCS: 45380; 88305; J7120; J2405

== ENCOUNTER → 2023-05-25 | Outpatient (CLI) | payer MEDICARE, OTHER, SELFPAY ==
--- OUTSIDE RECORDS SUMMARY | 2023-05-25 10:30 | XMS RPT_ITS | CCD ---
Author Name Unknown Address [address] [facility] [address] [place] [address] Organization [facility] Care Team Providers Care Retirement Officer Name Role Phone Jaydon Zaidi Attending Unavailable Sumit Anton Primary Care Unavailable Jaydon Zaidi Attending Unavailable Sumit Anton Primary Care Unavailable Jaydon Zaidi Admitting Unavailable Problems Problem Classification Problem Date Documented Date Episodic/Chronic Unclassified (2 sources) UNILATERAL PRIMARY OSTEOARTHRITIS RIGHT KNEE Onset: 03-19-2018 Results Test Name Value Interpretation Reference Range Facil ity Encounters Encounter Date Encounter Type Care Provider Facility Start: 04-11-2018 End: 04-13-2018 Evaluation and management of inpatient Jaydon Zaidi Facility:[facility] Start: 03-19-2018 Patient encounter procedure Jaydon Zaidi Facility:[facility] Procedures Date Procedure Procedure Detail Performing Clinician Start: 04-11-2018 Antibody screen Jaydon Zaidi Payers Date Payer Category Payer Private Health Insurance [id number] Unknown [id number] Unknown [id number] Summary Purpose Family History No Family History Records Found Advance Directives No Advanced Directives Records Found Additional Source Comments INFORMATION SOURCE (unrecogn ized section and content) FOR RECORDS PERTAINING TO PATIENTS WHO ARE OR HAVE BEEN ENROLLED IN A CHEMICAL DEPENDENCY/SUBSTANCEABUSE PROGRAM, SOME INFORMATION MAY BE OMITTED. This clinical summary was aggregated from multiple sources. Caution should be exercised in using it in the provision of clinical care. This summary normalizes information from multiple sources, and as a consequence, information in this document may materially change the coding, format and clinical context of patient data. In addition, data may be omitted in some cases. CLINICAL DECISIONS SHOULD BE BASED ON THE PRIMARY CLINICAL RECORDS. [facility]. provides no warranty or guarantee of the accuracy or completeness of information in this document.
[2023-05-25 12:01] LABS: Absolute Lymphocyte Count 1.46 X10^3/uL (0.83-4.51); Absolute Neutrophil Count 4.3 X10^3/uL (2.0-7.7); Basophil# 0.04 X10^3/uL; Basophil% 0.6 % (0-1); Eosinophil# 0.07 X10^3/uL; Eosinophils% 1.1 % (0-5); Hematocrit 46.1 % (37-47); Lymphocyte # 1.46 X10^3/ul (0.83-4.51); Mean Corp Hgb Conc 30.4 g/dL (32-36); Mean Corpuscular Hgb 28.9 pg (27.0-32.0); Mean Corpuscular Volume 95.2 fL (81-99); Monocyte# 0.48 X10^3/uL; Monocyte% 7.6 % (0-10); NRBC Flagged by Analyzer 0 % (0-5); Neutrophil # 4.26 X10^3/uL (2.7-7.7); Neutrophil % 67.2 % (47-70); Platelet Count 280 K/mm3 (150-450); RBC Distribution Width CV 12.9 % (11.6-14.6); RBC Distribution Width SD 45.5 fl (35.1-43.9); Red Blood Count 4.84 M/mm3 (4.2-5.4); White Blood Count 6.3 K/mm3 (4.4-11.0)
[2023-05-25 12:44] LABS: Vitamin D,25 Hydroxy 56.1 ng/mL
[2023-05-25 13:23] LABS: ALB/GLOB Ratio 0.8 RATIO (0.9-2.4); AST(SGOT) 24 U/L (15-37); Alanine Aminotransfer ALT/SGPT 35 U/L (13-56); Albumin, Serum 3.4 g/dL (3.2-5.0); Alkaline Phosphatase 55 U/L (45-117); Anion Gap 10 (5-15); BUN 25 mg/dL (7-18); Calcium,Total 9.3 mg/dL (8.5-10.1); Chloride 101 mmol/L (98-107); Cholesterol 161 mg/dL (200); Creatinine, Serum 0.54 mg/dL (0.55-1.02); EST Glomerular Filtration Rate 119 mL/min (>60); Est Glom Filt Rate - Afr Amer 144 mL/min (>60); Globulin 4.2 g/dL (2.2-4.2); Glucose 93 mg/dL (74-106); High Density Lipoprotein 49 mg/dL; Potassium 3.6 mmol/L (3.5-5.1); Protein, Total 7.6 g/dL (6.4-8.2); Sodium Level 140 mmol/L (136-145); Thyroid Stim Hormone (TSH) 1.25 uIU/mL (0.358-3.74); Triglycerides 120 mg/dL; Very Low Density Lipoprotein 24 mg/dL (5-40)
== END | disposition home or self-care (01) ==
LOC: BIMLAB 09:38
PROVIDERS: PCP Internal Medicine; Referring Provider Internal Medicine; Visit Provider Internal Medicine
DX: I10 Essential (primary) hypertension (principal); M81.0 Age-related osteoporosis without current pathological fracture
CPT/HCPCS: 36415; 80053; 80061; 82306; 84443; 85025

== ENCOUNTER → 2023-05-30 | Outpatient (CLI) | payer MEDICARE, OTHER, SELFPAY ==
--- NOTE | 2023-05-30 14:22 | BD_ITS ---
STUDY: DUAL ENERGY X-RAY ABSORPTIOMETRY / DXA REASON FOR EXAM: Female, 67 years old. Osteoporosis TECHNIQUE: Bone Mineral Density (BMD) measurements of lumbar spine and bilateral hips were obtained. COMPARISON: Comparison is made with prior study dated March 18, 2021. FINDINGS: Lumbar Spine (L1-L4): g/cm2 (1.282) / T-score (2.3) / Z-score (4.2) Findings are suggestive of normal bone density with a low fracture risk. Left Femur Total: g/cm2 (0.772) / T-score (-1.4) / Z-score (0.0) Left Femoral Neck: g/cm2 (0.547) / T-score (-2.7) / Z-score (-1.1) Right Femur Total: g/cm2 (0.650) / T-score (-2.4) / Z-score (-1.0) Right Femoral Neck: g/cm2 (0.501) / T-score (-3.1) / Z-score (-1.5) The T-Scores on the most recent prior examination were: Lumbar Spine (L1-L4): There has been improvement of bone density since the previous examination. Left Femur Total: which represents a worsening of 2.9%. Right Femur Total: which represents a worsening of 11.3%. BD/Dexa Bone Density Study IMPRESSION: The patient is considered osteoporotic as outlined below according to World Hua Organization (WHO) criteria with a high fracture risk. There has been worsening of bone density since the previous examination. Reference Information: The T-score is the number of standard deviations above or below the standard which is normal for young adults at their peak bone mineral density. The World Health Organization (WHO) interprets the T-scores as follows: Above -1 Normal bone density Between -1 and -2.5 Osteopenia Equal to / or below -2.5 Osteoporosis As a practical clinical guideline, osteopenia may be graded as follows: Mild -1 through -1.5 Moderate -1.6 through -2.0 Severe -2.1 through -2.4 The Z-score is the number of standard deviations above or below age-matched controls. A Z-score of less than -1.5 would be considered abnormal. References: 1. NIH Osteoporosis and Related Bone Diseases www osteo.org 2. International Society for Clinical Densitometry www iscd.org 3. National Osteoporosis Foundation www nof.org Electronically Signed: Ruslan Cruz MD at 14:32 EDT ,
--- NOTE | 2023-05-30 15:08 | BI_ITS ---
MAMMOGRAPHY - BILATERAL SCREENING REASON FOR EXAM: Female, 67 years old. Routine annual screening examination. PERTINENT HISTORY: Non-contributory. TECHNIQUE: Digital bilateral breast derrell (3D mammographic acquisition) in the CC and MLO projections. 2-D mediolateral oblique (MLO) and craniocaudad (CC) views of both breasts were obtained. CAD: Full Field Digital Mammography with Computer Added Detection was performed. COMPARISON: Comparison is made with prior study dated May 26, 2022 and March 18, 2021. FINDINGS: Breast Composition: The breasts are almost entirely fatty. There are no dominant masses or suspicious calcifications. Stable small benign-appearing bilateral axillary lymph nodes. No other significant abnormalities are identified. There has been no significant change since the prior study. BI/SCRN MAMM (CAD)W/DERRELL BILAT IMPRESSION: Stable bilateral screening mammogram. Yearly follow-up mammogram recommended. (A) ASSESSMENT CATEGORY: BIRADS Category 2: Benign. A letter regarding these results will be sent to the patient by the facility within 30 days. Approximately 10% of breast cancers are not detected by mammography. A normal mammogram should not delay biopsy of a clinically suspicious abnormality. [id number] Electronically Signed: Ruslan Cruz MD at 10:48 EDT ,
--- OUTSIDE RECORDS SUMMARY | 2023-05-31 02:49 | XMS RPT_ITS | CCD ---
Author Name Unknown Address [address] [facility] [address] [place] [id number] Organization [facility] Care Team Providers Care Assistant Professor Of Anthropology Name Role Phone Jaydon Zaidi Attending Unavailable [...] Evaluation and management of inpatient Jaydon Zaidi Facility:[facility] Start: 03-19-2018 Patient encounter procedure Jaydon Zaidi Facility:[facility] Procedures Date Procedure Procedure Detail Performing Clinician Start: 04-11-2018 Antibody screen Jaydon Zaidi Payers Date Payer Category Payer Private Health Insurance [id number] Unknown [id number] Unknown [id number] Summary Purpose Family History No Family History [...] BE BASED ON THE PRIMARY CLINICAL RECORDS. [facility]. provides no warranty or guarantee of the accuracy or completeness of information in this document.
== END | disposition home or self-care (01) ==
LOC: OPBD 16:14
PROVIDERS: PCP Internal Medicine; Referring Provider Internal Medicine; Visit Provider Internal Medicine
DX: Z12.31 Encounter for screening mammogram for malignant neoplasm of breast (principal); M81.0 Age-related osteoporosis without current pathological fracture
CPT/HCPCS: 77063; 77067; 77080

== ENCOUNTER 2023-07-05 10:17 | Outpatient (RCR) | payer SELFPAY | END 2023-07-18 23:59 | LOC: NS 10:17 | PROVIDERS: PCP Internal Medicine; Referring Provider Internal Medicine; Visit Provider Internal Medicine | DX: Z71.3 Dietary counseling and surveillance (principal); E66.01 Morbid (severe) obesity due to excess calories; I10 Essential (primary) hypertension; Z68.43 Body mass index [BMI] 50.0-59.9, adult | CPT/HCPCS: 97802 ==

== ENCOUNTER → 2023-10-09 | Outpatient (CLI) | payer MEDICARE, OTHER, SELFPAY ==
[2023-10-09 16:47] LABS: Absolute Lymphocyte Count 1.63 X10^3/uL (0.83-4.51); Absolute Neutrophil Count 5.2 X10^3/uL (2.0-7.7); Basophil# 0.04 X10^3/uL; Basophil% 0.5 % (0-1); Eosinophil# 0.09 X10^3/uL; Eosinophils% 1.2 % (0-5); Hematocrit 44.9 % (37-47); Lymphocyte # 1.63 X10^3/ul (0.83-4.51); Lymphocyte % 21.9 % (19-41); Mean Corp Hgb Conc 31.2 g/dL (32-36); Mean Corpuscular Hgb 29.4 pg (27.0-32.0); Mean Corpuscular Volume 94.3 fL (81-99); Mean Platelet Vol. 10.9 fl (6.2-12.0); Monocyte# 0.43 X10^3/uL; Monocyte% 5.8 % (0-10); NRBC Flagged by Analyzer 0 % (0-5); Neutrophil # 5.23 X10^3/uL (2.7-7.7); Neutrophil % 70.3 % (47-70); Platelet Count 294 K/mm3 (150-450); RBC Distribution Width CV 13.2 % (11.6-14.6); RBC Distribution Width SD 45.8 fl (35.1-43.9); Red Blood Count 4.76 M/mm3 (4.2-5.4); White Blood Count 7.4 K/mm3 (4.4-11.0)
[2023-10-09 17:05] LABS: CRP 4.06 mg/L (0.0-3.0)
[2023-10-09 17:08] LABS: Erythrocyte Sedimentation Rate 28 mm/hr (0-30)
== END | disposition home or self-care (01) ==
LOC: BIMLAB 15:15
PROVIDERS: PCP Internal Medicine; Referring Provider Ophthalmology; Visit Provider Ophthalmology
DX: H53.10 Unspecified subjective visual disturbances (principal); R51.9 Headache, unspecified
CPT/HCPCS: 36415; 85025; 85652; 86140

== ENCOUNTER → 2023-10-19 | Outpatient (CLI) | payer MEDICARE, OTHER, SELFPAY ==
--- NOTE | 2023-10-19 12:43 | CDU_ITS ---
Reason For Study: HEADACHE Rt. Velocities/BP Lt. Velocities/BP Prox CCA 100.2/17.9 cm/sec. Prox CCA 85.6/16.4 cm/sec. Mid CCA 79.3/16.7 cm/sec. Mid CCA 82.3/15.3 cm/sec. Dist CCA 64.6/15.5 cm/sec. Dist CCA 80.1/16.4 cm/sec. Prox ICA 80.1/20.8 cm/sec. Prox ICA 47.2/12.0 cm/sec. Mid ICA 84.5/23.0 cm/sec. Mid ICA 84.5/26.3 cm/sec. Dist ICA 75.7/26.3 cm/sec. Dist ICA 110.0/37.6 cm/sec. Rt. ICA/CCA = 1.1. Lt. ICA/CCA = 110.0/82.3=1.3. Prox ECA 52.6/7.6 cm/sec. Prox ECA 72.4/4.3 cm/sec. Rt. Vert. 50.4/8.7 cm/sec. Lt. Vert. 54.8/16.7 cm/sec. Right Extracranial There is homogeneous, smooth atherosclerotic plaque noted in the right common carotid artery. There is heterogeneous, irregular atherosclerotic plaque noted in the right internal carotid artery. There is intimal thickening but no significant atherosclerotic plaque noted in the right external carotid artery. Antegrade flow is noted in the right vertebral artery. Left Extracranial There is intimal thickening but no significant atherosclerotic plaque noted in the left common carotid artery. There is homogeneous, smooth atherosclerotic plaque noted in the left internal carotid artery. There is intimal thickening but no significant atherosclerotic plaque noted in the left external carotid artery. Antegrade flow is noted in the left vertebral artery. VL/Carotid Duplex Ultrasound Interpretation Summary Mild (<50%) stenosis right extracranial internal carotid. Mild (<50%) stenosis left extracranial internal carotid. Patent and antegrade vertebrals bilaterally. Ordering Physician: Trent Magana Referring Physician: Jennifer Mccoy Performed By: Adali Davila, NINFA, RVT
== END | disposition home or self-care (01) ==
PROVIDERS: PCP Internal Medicine; Referring Provider Ophthalmology; Visit Provider Ophthalmology
DX: H53.10 Unspecified subjective visual disturbances (principal); R51.9 Headache, unspecified
CPT/HCPCS: 93880

== ENCOUNTER → 2023-11-23 | Outpatient (CLI) | payer MEDICARE, OTHER, SELFPAY | END | disposition home or self-care (01) | LOC: SL 12:25 | PROVIDERS: PCP Internal Medicine; Referring Provider Nurse Practitioner; Visit Provider Nurse Practitioner | DX: G47.10 Hypersomnia, unspecified (principal) | CPT/HCPCS: 95806 ==

== ENCOUNTER → 2024-05-28 | Outpatient (CLI) | payer MEDICARE, OTHER, SELFPAY ==
[2024-05-28 12:52] LABS: Absolute Lymphocyte Count 1.37 X10^3/uL (0.83-4.51); Absolute Neutrophil Count 3.5 X10^3/uL (2.0-7.7); Basophil# 0.03 X10^3/uL; Basophil% 0.6 % (0-1); Eosinophil# 0.07 X10^3/uL; Eosinophils% 1.3 % (0-5); Hematocrit 42.3 % (37-47); Hemoglobin 13.3 g/dL (12.0-15.0); Lymphocyte # 1.37 X10^3/ul (0.83-4.51); Lymphocyte % 25.5 % (19-41); Mean Corp Hgb Conc 31.4 g/dL (32-36); Mean Corpuscular Hgb 29.3 pg (27.0-32.0); Mean Corpuscular Volume 93.2 fL (81-99); Mean Platelet Vol. 10.8 fl (6.2-12.0); Monocyte# 0.38 X10^3/uL; Monocyte% 7.1 % (0-10); NRBC Flagged by Analyzer 0 % (0-5); Neutrophil # 3.51 X10^3/uL (2.7-7.7); Neutrophil % 65.1 % (47-70); Platelet Count 284 K/mm3 (150-450); RBC Distribution Width CV 13.1 % (11.6-14.6); RBC Distribution Width SD 44.6 fl (35.1-43.9); Red Blood Count 4.54 M/mm3 (4.2-5.4); White Blood Count 5.4 K/mm3 (4.4-11.0)
[2024-05-28 13:27] LABS: Cholesterol 152 mg/dL (<=200); High Density Lipoprotein 49 mg/dL; Low Density Lipoprotein Calc. 84 mg/dL; Thyroid Stim Hormone (TSH) 0.332 uIU/mL (0.300-4.200); Triglycerides 95 mg/dL; Very Low Density Lipoprotein 19 mg/dL (5-40); cholesterol:hdl ratio screen 3.13
[2024-05-28 13:30] LABS: ALB/GLOB Ratio 1.1 RATIO (0.9-2.4); AST(SGOT) 20 U/L (<=31); Alanine Aminotransfer ALT/SGPT 24 U/L (<=34); Albumin, Serum 3.8 g/dL (3.4-4.8); Alkaline Phosphatase 55 U/L (35-104); Anion Gap 10 (5-15); BUN 26 mg/dL (4-19); Calcium,Total 9.4 mg/dL (7.6-11.0); Carbon Dioxide 28.1 mmol/L (21.0-32.0); Chloride 102 mmol/L (98-108); Creatinine, Serum 0.47 mg/dL (0.70-1.20); EST Glomerular Filtration Rate 103 (>60); Globulin 3.3 g/dL (2.2-4.2); Glucose 94 mg/dL (70-99); Potassium 3.9 mmol/L (3.3-5.1); Protein, Total 7.1 g/dL (5.9-8.4); Sodium Level 140 mmol/L (133-145); Total Bilirubin 0.33 mg/dL (0.00-1.30)
[2024-05-28 16:58] LABS: Vitamin D,25 Hydroxy 62.4 ng/mL (30-100)
[2024-05-28 17:34] LABS: Vitamin B12 967 pg/mL (180-914)
== END | disposition home or self-care (01) ==
LOC: BIMLAB 09:04
PROVIDERS: PCP Internal Medicine; Referring Provider Internal Medicine; Visit Provider Internal Medicine
DX: I10 Essential (primary) hypertension (principal); M81.0 Age-related osteoporosis without current pathological fracture; E53.8 Deficiency of other specified B group vitamins; E03.9 Hypothyroidism, unspecified
CPT/HCPCS: 36415; 80053; 80061; 82306; 82607; 84443; 85025

== ENCOUNTER → 2024-05-31 | Outpatient (CLI) | payer MEDICARE, OTHER, SELFPAY ==
--- NOTE | 2024-05-31 13:00 | BI_ITS ---
PROCEDURE: SCRN MAMM (CAD)W/DERRELL BILAT REASON FOR EXAM: F, Age 68 y/o, presents for annual screening mammogram. No family history of breast cancer. TECHNIQUE: Bilateral screening digital breast tomosynthesis with 2D and 3D images. Computer aided detection. COMPARISON: 05/30/2023, 05/26/2022 FINDINGS: The breasts are almost entirely fatty. No suspicious masses, areas of developing architectural distortion, or suspicious calcifications. BI/SCRN MAMM (CAD)W/DERRELL BILAT IMPRESSION: There is no mammographic evidence of malignancy. BI-RADS 1: NEGATIVE. RECOMMEND ANNUAL MAMMOGRAPHIC SCREENING. Follow-up code: Routine Follow-up The patient will be notified of the results by letter. Reading Location: [id number]
== END | disposition home or self-care (01) ==
LOC: OPBI 12:47
PROVIDERS: PCP Internal Medicine; Referring Provider Internal Medicine; Visit Provider Internal Medicine
DX: Z12.31 Encounter for screening mammogram for malignant neoplasm of breast (principal)
CPT/HCPCS: 77063; 77067